=== PATIENT | female | born 1960 | race Caucasian/White ===

== ENCOUNTER 2018-12-23 07:46 | Emergency (ER) | payer OTHER ==
[~2018-12-23] VITALS: Ht 152.4 cm; Wt 63.0 kg
[2018-12-23 07:50] VITALS: BP_SYST 152
--- NOTE | 2018-12-23 07:58 | NUR ---
Patient to ER bed 7 to gown for evaluation. Side rails up. Report given to Margarita SHULTZ.
--- NOTE | 2018-12-23 08:00 | NUR ---
Patient presented to ER with C/O right eye floaters with bright flashing halo. Patient A&Ox4, skin pink, ambulatory to ER, cap refill brisk, denies N/V/D, denies head trauma pain 5/10 for headache. patient states floaters started yesterday. Patient states she had nausea initially when floaters started yesterday. Patient states she has a hx floaters on the left eye and sx on both eyes 8 yrs ago.
--- NOTE | 2018-12-23 08:01 | NUR ---
ER Dr. Soares at bedside examining patient.
--- NOTE | 2018-12-23 09:05 | NUR ---
ER Dr. Gregory at bedside examining patient.
[2018-12-23 09:10] LABS: BASOPHILS % (AUTO) 0.1 % (0.0-2.0); EOSINOPHILS # (AUTO) 0.1 K/uL (0.0-0.4); EOSINOPHILS % (AUTO) 1.3 % (0.0-4.0); HEMATOCRIT 44.1 % (36-48); HEMOGLOBIN 14.5 g/dL (12.0-16.0); LYMPHOCYTES # (AUTO) 1.3 K/uL (1.0-5.5); LYMPHOCYTES % (AUTO) 16.8 % (20.5-51.5); MEAN CORPUSCULAR HEMOGLOBIN 30 pg (27-31); MEAN CORPUSCULAR HGB CONC 33 % (32-36); MEAN CORPUSCULAR VOLUME 92 fL (79.0-98.0); MONOCYTES # (AUTO) 0.5 K/uL (0.0-1.0); MONOCYTES % (AUTO) 6.5 % (1.7-9.3); NEUTROPHILS # (AUTO) 5.7 K/uL (1.8-7.7); NEUTROPHILS % (AUTO) 75.3 % (40.0-70.0); PLATELET COUNT (AUTO) 262 K/uL (130-430); RED BLOOD CELL COUNT(AUTO) 4.81 MIL/uL (4.2-6.2); RED CELL DISTRIBUTION WIDTH 13.3 % (9.0-15.0); WHITE BLOOD COUNT (AUTO) 7.6 K/uL (4.8-10.8)
[2018-12-23 09:28] LABS: CALCIUM 9.7 mg/dL (8.4-11.0); CREATININE 0.78 mg/dL (0.55-1.30); POTASSIUM 4.1 mmol/L (3.5-5.1)
[2018-12-23 09:54] LABS: ERYTHROCYTE SEDIMENTATION RATE 5 MM/HR (0-20)
[2018-12-23 10:05] VITALS: BP_SYST 152
--- NOTE | 2018-12-23 10:05 | NUR ---
Patient given written and verbal discharge instructions and verbalizes understanding. ER MD discussed with patient the results and treatment provided. Patient in stable condition. ID arm band removed. Rx of Tylenol ES given. Patient educated on pain management and to follow up with PMD. Pain Scale 0/10 . Opportunity for questions provided and answered. Dr. Soares gave print out of "eye floaters" education
== END 2018-12-23 10:05 | disposition home or self-care (01) ==
LOC: SED 07:46
DX: H43.391 Other vitreous opacities, right eye (principal); Z86.69 Personal history of other diseases of the nervous system and sense organs
CPT/HCPCS: 36415; 80048; 85025; 85651-TC; 99283

== ENCOUNTER 2021-12-08 09:42 | Emergency (ER) | payer OTHER ==
[~2021-12-08] VITALS: Ht 152.4 cm; Wt 65.8 kg
[2021-12-08 10:05] VITALS: BP_SYST 119
--- NOTE | 2021-12-08 10:09 | NUR ---
ER at bedside examining patient.
--- NOTE | 2021-12-08 10:09 | NUR ---
Patient triaged and placed in COVID TENT. VSS and patient appears in no acute distress at this time. Accompanied by ,and MD notified of need for MSE.
--- NOTE | 2021-12-08 10:30 | NUR ---
PATIENT AAOX4 FROM HOME C/O RU/RLQ ABDOMINAL PAIN X MONDAY. TESTED POSITIVE FOR COVID ON MONDAY. RECEIVED MONOCOLONIAL ANTIBODIES AND STATED FEELING BETTER. +NAUSEA.
[2021-12-08 10:36] LABS: BASOPHILS % (AUTO) 0.1 % (0.0-2.0); EOSINOPHILS % (AUTO) 0.2 % (0.0-4.0); HEMATOCRIT 40.9 % (36-48); HEMOGLOBIN 13.8 g/dL (12.0-16.0); LYMPHOCYTES # (AUTO) 1.6 K/uL (1.0-5.5); LYMPHOCYTES % (AUTO) 13.9 % (20.5-51.5); MEAN CORPUSCULAR HEMOGLOBIN 30 pg (27-31); MEAN CORPUSCULAR HGB CONC 34 % (32-36); MEAN CORPUSCULAR VOLUME 90 fL (79.0-98.0); MONOCYTES # (AUTO) 0.6 K/uL (0.0-1.0); MONOCYTES % (AUTO) 5.2 % (1.7-9.3); NEUTROPHILS # (AUTO) 9.2 K/uL (1.8-7.7); NEUTROPHILS % (AUTO) 80.6 % (40.0-70.0); PLATELET COUNT (AUTO) 251 K/uL (130-430); RED BLOOD CELL COUNT(AUTO) 4.56 MIL/uL (4.2-6.2); RED CELL DISTRIBUTION WIDTH 12.5 % (9.0-15.0); WHITE BLOOD COUNT (AUTO) 11.5 K/uL (4.8-10.8)
[2021-12-08 10:40] LABS: BILIRUBIN,URINE NEGATIVE (NEGATIVE); BLOOD, URINE 2+ (NEGATIVE); COLOR,URINE YELLOW (YELLOW); GLUCOSE,URINE NEGATIVE (NEGATIVE); KETONES,URINE NEGATIVE (NEGATIVE); LEUKOCYTE ESTERASE ,URINE TRACE (NEGATIVE); NITRITE, URINE NEGATIVE (NEGATIVE); PH,URINE 5.5 (5.0-8.0); PROTEIN URINE NEGATIVE (NEGATIVE); UROBILINOGEN,URINE 0.2 (0.2-1.0)
[2021-12-08 10:41] LABS: CLARITY/URINE CLOUDY (CLEAR)
[2021-12-08 10:53] LABS: BACTERIA,URINE FEW /HPF (None Seen)
[2021-12-08 10:53] LABS: ANION GAP 9 (5-15); CALCIUM 8.4 mg/dL (8.4-11.0); CHLORIDE 104 mmol/L (98-107); CREATININE 0.82 mg/dL (0.55-1.30); GLUCOSE 105 mg/dL (70-99); POTASSIUM 3.7 mmol/L (3.5-5.1); SODIUM SERUM 142 mmol/L (136-145); UREA NITROGEN, BLOOD 10 mg/dL (8-21)
[2021-12-08 10:55] LABS: GFR AFRICAN AMERICAN 91 mL/min (>90)
[2021-12-08 11:07] LABS: ALANINE AMINOTRANSFERASE 22 U/L (12-78); ALBUMIN 3.4 g/dL (3.4-4.8); AMYLASE 63 U/L (0-100); ASPARTATE AMINOTRANSFERASE 20 U/L (10-37); C-REACTIVE PROTEIN QUANT 17.2 mg/dL (0-0.5); LACTATE DEHYDROGENASE 76 U/L (81-234); LIPASE 64 U/L (73-393); TOTAL BILIRUBIN 0.4 mg/dL (0.0-1.0)
[2021-12-08] MEDS ORDERED: IBUP-1969 PO (12:18)
[2021-12-08] MEDS ORDERED: AMOX-423 PO (12:18)
[2021-12-08 12:48] VITALS: BP_SYST 137
--- NOTE | 2021-12-08 12:49 | NUR ---
Patient given written and verbal discharge instructions and verbalizes understanding. ER MD discussed with patient the results and treatment provided. Patient in stable condition. ID arm band removed. Rx of AUGMENTIN, IBUPROFEN given. Patient educated on pain management and to follow up with PMD. Pain Scale 0/10. Opportunity for questions provided and answered. Medication side effect fact sheet provided.
[2021-12-12] MEDS ORDERED: OXCA600T5 PO (10:09)
[2021-12-12] MEDS ORDERED: OXCA150T5 PO (10:09)
== END 2021-12-08 12:49 | disposition home or self-care (01) ==
LOC: SED 09:42
DX: R10.11 Right upper quadrant pain (principal); R11.2 Nausea with vomiting, unspecified; K59.00 Constipation, unspecified
CPT/HCPCS: 36415; 76376; 80053; 81000; 82150; 83605; 83615; 83690; 84484; 85025; 86140; 87086; 99284